=== PATIENT | female | born 1985 | race Caucasian/White ===

== ENCOUNTER 2022-08-05 08:46 | Emergency (ER) | payer OTHER, BC ==
[~2022-08-05] VITALS: Ht 172.7 cm; Wt 90.7 kg
[2022-08-05] MEDS ORDERED: CEFDINIR300 MG PO (09:05)
[2022-08-05 09:50] LABS: BASO% 0.4 % (0-3); EOS% 1.9 % (0-8); HEMATOCRIT 44.5 % (37.0-47.0); HEMOGLOBIN 14.2 g/dl (12.0-16.0); IMMATURE GRANULOCYTES 0.4 % (0.0-5.0); LYMPH% 16.1 % (15-41); MEAN CELL VOLUME 93.5 fL CALC (80.0-100.0); MEAN CORPUSCULAR HGB 29.8 pG CALC (26.0-32.0); MEAN CORPUSCULAR HGB CONC 31.9 g/dL CAL (32.0-36.0); MONO% 5.4 % (2-13); NEUT# 5.45 thou/uL (2.00-7.15); NEUT% 75.8 % (42-76); RED BLOOD COUNT 4.76 mill/uL (4.20-5.60); RED CELL DISTRI WIDTH 11.7 % (11.5-15.5)
[2022-08-05 10:16] LABS: ALBUMIN 4.3 g/dL (3.2-5.0); ALKALINE PHOSPHATASE 97 u/l (38-126); ANION GAP 11 (6-22 (CALC)); BILIRUBIN, TOTAL 0.5 mg/dL (0.02-1.3); BUN 19 mg/dL (7-17); BUN/CREATININE RATIO 27 (12-20 (CALC)); CARBON DIOXIDE 25 mmol/l (22-30); CHLORIDE 107 mmol/l (95-108); CREATININE 0.7 mg/dL (0.5-1.0); GFR FOR AFR.AMER. > 60 ML/MIN (>=60 (CALC)); GFR OTHER RACES > 60 ML/MIN (>=60 (CALC)); POTASSIUM 3.9 mmol/l (3.5-5.1); SGOT/AST 25 u/l (14-36); SODIUM 139 mmol/l (137-146); TOTAL PROTEIN 7.8 g/dL (6.3-8.2)
[2022-08-05 11:49] VITALS: BP 136/75
== END 2022-08-05 12:03 | disposition home or self-care (01) | DRG 125 ==
LOC: ED 08:46
PROVIDERS: Family Medicine
PROC: 0HQ1XZZ Repair Face Skin, External Approach (ICD-10-PCS; principal; 2022-08-05)
DX: S01.111A Laceration without foreign body of right eyelid and periocular area, initial encounter (principal); R51.9 Headache, unspecified; V43.52XA Car driver injured in collision with other type car in traffic accident, initial encounter

== ENCOUNTER 2022-08-14 11:50 | Emergency (ER) | payer OTHER, BC ==
[~2022-08-14] VITALS: Ht 172.7 cm; Wt 92.9 kg
[~2022-08-14 11:50] MED LIST: CEFDINIR300 MG PO
[2022-08-14 13:09] VITALS: BP 131/63
[2022-08-14 13:42] VITALS: BP 131/63
== END 2022-08-14 13:53 | disposition home or self-care (01) | DRG 951 ==
LOC: ED 11:50
DX: Z48.02 Encounter for removal of sutures (principal)